=== PATIENT | male | born 1985 | race African-American/Black ===

== ENCOUNTER 2019-02-27 08:43 | Emergency (ER) | payer OTHER ==
[~2019-02-27] VITALS: Ht 182.9 cm; Wt 83.1 kg
[~2019-02-27 08:43] MED LIST: ACET-141 PO; FLUO20CA38 PO; LORA-186 PO
[2019-02-27 08:49] VITALS: BP 116/70; PULSE 78; RESP 19; Ht 182.9 cm; Wt 83.1 kg
--- NOTE | 2019-02-27 09:13 | ERD ---
ER Documentation Chief Complaint Chief Complaint sent by PCP for port cath removal HPI This is a 33-year-old man here for right upper chest Port-A-Cath removal, was sent within no from his primary care physician Dr. Miri Cartwright to remove the Port-A-Cath today. Patient denies fevers or chills, no chest pain or shortness of breath. ROS All systems reviewed and are negative except as per history of present illness. Medications Home Meds Reported Medications Loratadine* (Claritin*) 10 Mg Tablet, 10 MG PO DAILY, TAB 10/30/18 Acetaminophen* (Acetaminophen*) 500 MG Extra Strength Tablet, 1000 MG PO Q6H PRN for PAIN AND OR ELEVATED TEMP, TAB 10/30/18 Fluoxetine Hcl* (Prozac*) 20 Mg Capsule, 20 MG PO QAM, CAP 10/30/18 Allergies Allergies: Coded Allergies: sulfamethoxazole (Verified Allergy, Mild, 11/07/18) trimethoprim (Verified Allergy, Mild, 11/07/18) PMhx/Soc History of Surgery: No Anesthesia Reaction: No Hx Neurological Disorder: No Hx Respiratory Disorders: No Hx Cardiac Disorders: No Hx Psychiatric Problems: No Hx Miscellaneous Medical Probl: No Hx Alcohol Use: No Hx Substance Use: No Hx Tobacco Use: No Physical Exam Vitals Vital Signs Date Temp Pulse Resp B/P (MAP) Pulse Ox O2 O2 Flow FiO2 Time Delivery Rate 02/27/19 98.0 78 19 116/70 97 08:49 (85) Physical Exam GENERAL: Well-developed, well-nourished, well-hydrated, in no apparent distress, looks nontoxic in appearance CARDIAC: Regular rate and rhythm, no murmurs rubs or gallops LUNGS: Clear bilaterally no wheezing crackles or stridor SKIN: Warm and dry to touch, there is a half a centimeter puncture wound to the right anterior upper chest after hemodialysis catheter removal with no residual bleeding. Wound margins appear clean and are dry there is no purulent discharge or surrounding skin erythema or induration. PSYCH: Normal affect without agitation or irritability Procedures/MDM Old dry granulation tissue was debrided from the Port-A-Cath insertion site at the right upper chest there was no bleeding and patient tolerated procedure well. Port-A-Cath was removed successfully with minimal bleeding. I do not recommend sutures or tissue adhesive as it is a tunneled wound to the chest and will heal by secondary intention. Site was dressed with dry sterile gauze and instructions were provided to the patient to keep it clean and dry. Patient does have follow-up with his PMD scheduled for continued outpatient management and wound check. Patient feels much better at this time, and vital signs are normal, symptoms have improved. I did give strict instructions to return to the ED if symptoms continue or worsen, patient will otherwise follow-up with primary care physician. Patient understood instructions and agreed to plan. Disclaimer: Inadvertent spelling and grammatical errors are likely due to EHR/di ctation software use and do not reflect on the overall quality of patient care. Also, please note that the electronic time recorded on this note does not necessarily reflect the actual time of the patient encounter. Departure Diagnosis: Primary Impression: History of removal of Port-a-Cath Additional Impression: Well adult exam Condition: Good Patient Instructions: Post Op Wound Check, Bleeding Referrals: [facility] (PCP) ARIANNE SERRA MD February 27, 2019 09:13
== END 2019-02-27 09:30 | disposition home or self-care (01) ==
LOC: E/R 08:43
DX: Z45.2 Encounter for adjustment and management of vascular access device (principal); Z00.00 Encounter for general adult medical examination without abnormal findings
CPT/HCPCS: 99282

== ENCOUNTER 2019-04-18 15:15 | Emergency (ER) | payer MEDICARE, OTHER ==
[~2019-04-18] VITALS: Ht 185.4 cm; Wt 82.3 kg
[2019-04-18 15:20] VITALS: BP 119/76; PULSE 73; RESP 18; Ht 185.4 cm; Wt 82.3 kg
[2019-04-18] MEDS ORDERED: CLOT30CR24 TOP (15:53)
--- NOTE | 2019-04-18 17:54 | ERD ---
ER Documentation Chief Complaint Chief Complaint RASH TO FACE, NECK, NOSE FOR A WEEK. HPI 34-year-old male with history of hypertension, history of rhabdo presents for rash of the face neck and nose x1 week. States that his girlfriend has similar symptoms. He states that there is no itchiness. Denies any fevers or chills. Denies any chest pain or shortness of breath. No prior similar symptoms. He has no animal exposure recently. No other modifying factors noted, no treatments tried at home. ROS All systems reviewed and are negative except as per history of present illness. Medications Home Meds Active Scripts Clotrimazole* (Clotrimazole* AF) 1% - 30 Gm Cream.gm., 1 APPLIC TOP BID for fungal infection for 14 Days, #1 TUB Prov:RICHARD CONNOLLY DO 04/18/19 Reported Medications Loratadine* (Claritin*) 10 Mg Tablet, 10 MG PO DAILY, TAB 10/30/18 Acetaminophen* (Acetaminophen*) 500 MG Extra Strength Tablet, 1000 MG PO Q6H PRN for PAIN AND OR ELEVATED TEMP, TAB 10/30/18 Fluoxetine Hcl* (Prozac*) 20 Mg Capsule, 20 MG PO QAM, CAP 10/30/18 Allergies Allergies: Coded Allergies: sulfamethoxazole (Verified Allergy, Mild, 11/07/18) trimethoprim (Verified Allergy, Mild, 11/07/18) PMhx/Soc History of hypertension, acute renal failure due to rhabdomyolysis History of Surgery: No Anesthesia Reaction: No Hx Neurological Disorder: No Hx Respiratory Disorders: No Hx Cardiac Disorders: No Hx Psychiatric Problems: No Hx Miscellaneous Medical Probl: Yes (RHABDO) Hx Alcohol Use: No Hx Substance Use: No Hx Tobacco Use: No FmHx Family History: No coronary disease Physical Exam Vitals Vital Signs Date Temp Pulse Resp B/P (MAP) Pulse Ox O2 O2 Flow FiO2 Time Delivery Rate 04/18/19 98.0 73 18 119/76 96 15:20 (90) Physical Exam Const: No acute distress Neck: Full range of motion. No meningismus. Resp: Clear to auscultation bilaterally Cardio: Regular rate and rhythm, no murmurs Abd: Soft, non tender, non distended. Normal bowel sounds Skin: Circular rash noted over the lower part of the left left and left chin, about 1 cm, there is a small area of rash noted over the bridge of the nose and right neck, the rash noted to be dry circular Back: No midline or flank tenderness Ext: No cyanosis, or edema Neur: Awake and alert Psych: Normal Mood and Affect Procedures/MDM Medical Decision Making: Differential diagnosis includes but not limited to allergic reaction, dermatitis, cellulitis, viral syndrome, fungal infection Patient appeared well on physical exam. No acute distress, speaking in full sentences, there is no tongue swelling Physical examination consistent with fungal infection Prescription(s): Patient given prescription for antifungal cream. Patient advised to follow up with PCP in 1-2 days. Patient advised to return to ED for new or worsening symptoms. Patient stable on discharge from the ED. Disclaimer: Inadvertent spelling and grammatical errors are likely due to EHR/dictation software use and do not reflect on the overall quality of patient care. Also, please note that the electronic time recorded on this note does not necessarily reflect the actual time of the patient encounter. Departure Diagnosis: Primary Impression: Rash Condition: Fair Patient Instructions: Tinea Corporis Referrals: [facility] (PCP) Additional Instructions: Call your primary care doctor TOMORROW for an appointment during the next 1-2 days.See the doctor sooner or return here if your condition worsens before your appointment time. RICHARD CONNOLLY DO Apr 18, 2019 17:54
== END 2019-04-18 16:04 | disposition home or self-care (01) ==
LOC: E/R 15:15
DX: R21 Rash and other nonspecific skin eruption (principal); I10 Essential (primary) hypertension
CPT/HCPCS: 99282